=== PATIENT | female | born 1995 | race African-American/Black ===

== ENCOUNTER 2017-11-12 17:56 | Emergency (ER) | payer MEDICAID ==
--- NOTE | 2017-11-12 18:07 | ER Document Report ---
ED Medical Screen (RME) - General Stated Complaint: VAGINAL BLEEDING Notes: 22-year-old female presents via EMS for evaluation for back pain, vaginal bleeding and . Patient states that she was seen 1 week ago at [facility] where she received a speculum exam and a test and was told that she was . Over the last couple of days has been having pain in her back. Pain became more severe and vaginal bleeding became more pronounced today. Passing large clots. Could not find a ride to the hospital so had to call EMS. Patient interiors at this time. Denies any other major symptoms. No prior miscarriage. One previous . Denies any major medical problems. I have greeted and performed a rapid initial assessment of this patient. A comprehensive ED assessment and evaluation of the patient, analysis of test results and completion of the medical decision making process will be conducted by additional ED providers. Review of Systems - Review of Systems Notes: Review of systems positive for the following: Right-sided back pain, vaginal bleeding Physical Exam - Notes Notes: Uncomfortable appearing but tearful - General General appearance: Appears well, Alert, Anxious - Respiratory Respiratory status: No respiratory distress Chest status: Nontender Breath sounds: Normal Chest palpation: Normal - Cardiovascular Rhythm: Regular Heart sounds: Normal auscultation Murmur: No - Abdominal Inspection: Normal Distension: No distension Bowel sounds: Normal Tenderness: Nontender Organomegaly: No organomegaly - Back Back: Normal, Nontender
[2017-11-12] MEDS ORDERED: NORMAL SALINE 1000 ML 1,000 ML IV ONE (18:24)
[2017-11-12 18:30] LABS: ABSOLUTE EOSINOPHILS # (AUTO) 0.1 10^3/uL (0.0-0.6); ABSOLUTE LYMPHOCYTES (AUTO) 3.6 10^3/uL (0.5-4.7); ABSOLUTE MONOCYTES (AUTO) 0.4 10^3/uL (0.1-1.4); BASOPHILS % (AUTO) 0.5 % (0-2); EOSINOPHILS % (AUTO) 1.7 % (0-6); HEMATOCRIT 36.4 % (36.0-47.0); HEMOGLOBIN 12.4 g/dL (12.0-15.5); LYMPHOCYTES % (AUTO) 44.3 % (13-45); MEAN CORPUSCULAR HEMOGLOBIN 30.7 pg (27.0-33.4); MEAN CORPUSCULAR HGB CONC 34.2 g/dL (32.0-36.0); MEAN CORPUSCULAR VOLUME 90 fl (80-97); MONOCYTES % (AUTO) 5.2 % (3-13); PLATELET COUNT 277 10^3/uL (150-450); RED BLOOD COUNT 4.05 10^6/uL (3.72-5.28); RED CELL DISTRIBUTION WIDTH 13.4 % (11.5-14.0); SEGMENTED NEUTROPHILS % (AUTO) 48.3 % (42-78); TOTAL CELLS COUNTED % (AUTO) 100 %; WHITE BLOOD COUNT 8.2 10^3/uL (4.0-10.5)
[2017-11-12 18:53] LABS: ALANINE AMINOTRANSFERASE 15 U/L (9-52); ALKALINE PHOSPHATASE 41 U/L (38-126); ANION GAP 8 (5-19); ASPARTATE AMINO TRANSFERASE 15 U/L (14-36); BILIRUBIN,DIRECT 0.3 mg/dL (0.0-0.4); BILIRUBIN,TOTAL 0.4 mg/dL (0.2-1.3); BLOOD UREA NITROGEN 9 mg/dL (7-20); CALCIUM 9.7 mg/dL (8.4-10.2); CARBON DIOXIDE 26 mmol/L (22-30); CHLORIDE 104 mmol/L (98-107); GLUCOSE 70 mg/dL (75-110); POTASSIUM 4.2 mmol/L (3.6-5.0); SODIUM 137.9 mmol/L (137-145); TOTAL PROTEIN 7.1 g/dL (6.3-8.2)
--- NOTE | 2017-11-12 19:39 | ER Document Report ---
ED General - General Chief Complaint: Vaginal Bleeding Stated Complaint: VAGINAL BLEEDING Time Seen by Provider: 11/12/17 18:20 TRAVEL OUTSIDE OF THE [place] IN LAST 30 DAYS: No - HPI Patient complains to provider of: Vaginal bleeding Notes: Pt. is a 22 y/o female presenting to the ED c/o vaginla bleeding. Pt. stated that on Wed she was to another ED where she was told that "everything was ok." She stated staff at that time told her she was not having a miscarriage. She stated that she has continued with bright red vaginal bleeding for the past two days, today passing large clots with some back pain. Pt. stated that currently she is pain free. She denies nausea, vomiting, fever, dysuria, abdominal pain, trauma to her abdomen. LMP 08/27/2017. Pt. denies smoking, etoh use or illicit drug use. Medications: none Allergies: non Surgeries: - Related Data Allergies/Adverse Reactions: No Known Allergies Allergy (Unverified 11/12/17 19:37) Past Medical History - General Information source: Patient Last Menstrual Period: August 27, 2017 - Social History Smoking Status: Never Smoker Frequency of alcohol use: None Drug Abuse: Marijuana Lives with: Family Family History: Reviewed & Not Pertinent Patient has suicidal ideation: No Patient has homicidal ideation: No Renal/ Medical History: Denies: Hx Peritoneal Dialysis Review of Systems - Review of Systems Constitutional: See HPI EENT: No symptoms reported Cardiovascular: No symptoms reported Respiratory: See HPI Gastrointestinal: See HPI Genitourinary: See HPI Female Genitourinary: See HPI Musculoskeletal: See HPI Skin: No symptoms reported Hematologic/Lymphatic: No symptoms reported Neurological/Psychological: No symptoms reported Physical Exam - Vital signs Vitals: BP 147/126 H 11/12/17 18:00 - Notes Notes: GENERAL: Alert, interacts well. No acute distress. HEAD: Normocephalic, atraumatic. EYES: Pupils equal, round, and reactive to light. Extraocular movements intact. ENT: Oral mucosa moist, tongue midline. NECK: Full range of motion. Supple. Trachea midline. LUNGS: Clear to auscultation bilaterally, no wheezes, rales, or rhonchi. No respiratory distress. HEART: Regular rate and rhythm. No murmur ABDOMEN: Soft, non-tender. Non-distended. Bowel sounds present in all 4 quadrants. EXTREMITIES: Moves all 4 extremities spontaneously. No edema, normal radial and dorsalis pedis pulses bilaterally. No cyanosis. BACK: no cervical, thoracic, lumbar midline tenderness. No saddle anesthesia, normal distal neurovascular exam. NEUROLOGICAL: Alert and oriented x3. Normal speech. . PSYCH: Normal affect, normal mood. SKIN: Warm, dry, normal turgor. No rashes or lesions noted. Course - Re-evaluation Re-evalutation: Dr. Alfaro told NYDIA Morrow that the tissue passed was infact the fetus. POC sent to lab. Discussed with patient need for pelvic exam. Patient agrees. Pelvic revealed no tissue in os. Scant amount of fluid in cul-de-sac. Discussed with patient ultrasound results and need for follow-up with [facility] in 24-48 hours for repeat hCG. Return precautions given. Patient states she understands. - Vital Signs Vital signs: Temp Pulse Resp BP Pulse Ox 98.6 F 88 18 121/74 100 11/12/17 22:16 11/12/17 22:16 11/12/17 22:16 11/12/17 22:16 11/12/17 22:16 - Laboratory Result Diagrams: 11/12/17 18:10 11/12/17 18:10 Laboratory results interpreted by me: 11/12/17 11/12/17 18:10 18:30 Glucose 70 L Beta HCG, Quant 2075.60 H Urine Protein 100 H Urine Blood LARGE H Urine Ascorbic Acid 20 H Discharge - Discharge Clinical Impression: Vaginal bleeding, Miscarriage Condition: Stable Disposition: HOME, SELF-CARE Additional Instructions: I am sorry to tell you that you have been seen today in the Emergency Department for a miscarriage. According to your ultrasound there is no living in your uterus. You may have vaginal bleeding over the next few days with some abdominal cramping or lower back pain. You MUST follow up with your OBGYN as we discussed for repeat blood work in the next 24-48 hours. Return to the ED should you feel lightheaded or dizzy, pass out, have chest pains or shortness of breath, or for any other concerning symptoms. Take pain medications as prescribed for pain.
--- NOTE | 2017-11-12 19:52 | RADIOLOGY REPORT (SQ) ---
EXAM DESCRIPTION: U/S OB TRANSVAG W/DOPPLER COMPLETED DATE/TIME: 11/12/2017 7:28 pm REASON FOR STUDY: vag bleeding back pain COMPARISON: None. TECHNIQUE: Dynamic and static grayscale images acquired of the pelvis via transvaginal approach and recorded on PACS. Additional selected color Doppler and spectral images recorded. LIMITATIONS: None. FINDINGS: UTERUS: Contour normal. No mass. ENDOMETRIAL STRIPE: No focal or generalized thickening. No masses. CERVIX: No nabothian cysts. RIGHT OVARY AND DOPPLER: Normal size. No worrisome masses. 10 mm complex cyst. Normal arterial vasc ular flow without evidence for torsion. LEFT OVARY AND DOPPLER: Normal size. No worrisome masses. Normal arterial vascular flow without evide nce for torsion. FREE FLUID: Small mild cul-de-sac free fluid. OTHER: No other significant finding. MEASUREMENTS: UTERUS: 8.2 x 6.2 x 5.5 cm ENDOMETRIAL STRIPE: 11 mm RIGHT OVARY: 2.8 x 2.4 x 2.3 cm LEFT OVARY: 2.7 x 1.7 x 1.4 cm IMPRESSION: No IUP identified. TECHNICAL DOCUMENTATION: JOB ID: [id number] [email or web address]- All Rights Reserved Rev-07/09 Reading location - IP/workstation name: [email or web address]
[2017-11-12 20:12] LABS: APPEARANCE,URINE CLOUDY; BILIRUBIN,URINE NEGATIVE (NEGATIVE); GLUCOSE, URINE NEGATIVE (NEGATIVE); KETONES,URINE NEGATIVE (NEGATIVE); LEUKOCYTE ESTERASE,URINE NEGATIVE (NEGATIVE); NITRITE,URINE NEGATIVE (NEGATIVE); PROTEIN,URINE 100 mg/dL (NEGATIVE); URINE SPECIFIC GRAVITY 1.018; UROBILINOGEN,URINE NEGATIVE mg/dL (<2.0)
[2017-11-12 20:13] LABS: COLOR,URINE PINK
[2017-11-12] MEDS ORDERED: HYDROCODONE/ACETAMINOPHEN 5-325 MG (6 TAB/ER DISP) PO PRN (22:09)
[2017-11-12 22:18] VITALS: BP 121/74
== END 2017-11-12 22:18 | disposition home or self-care (01) ==
LOC: ER 17:56
DX: O03.9 Complete or unspecified spontaneous abortion without complication (principal)
CPT/HCPCS: 36415; 76817; 80053; 81001; 84702; 85025; 86900; 86901; 88305; 93976; 96360; 96361; 99284

== ENCOUNTER 2018-05-29 10:17 | Emergency (ER) | payer MEDICAID ==
[2018-05-29 10:39] LABS: ABSOLUTE LYMPHOCYTES (AUTO) 2.2 10^3/uL (0.5-4.7); ABSOLUTE MONOCYTES (AUTO) 0.3 10^3/uL (0.1-1.4); ABSOLUTE NEUT (AUTO) 2.6 10^3/uL (1.7-8.2); BASOPHILS % (AUTO) 0.7 % (0-2); EOSINOPHILS % (AUTO) 0.6 % (0-6); HEMATOCRIT 37.1 % (36.0-47.0); HEMOGLOBIN 12.8 g/dL (12.0-15.5); MEAN CORPUSCULAR HGB CONC 34.4 g/dL (32.0-36.0); MEAN CORPUSCULAR VOLUME 90 fl (80-97); MONOCYTES % (AUTO) 6.1 % (3-13); PLATELET COUNT 250 10^3/uL (150-450); RED BLOOD COUNT 4.11 10^6/uL (3.72-5.28); RED CELL DISTRIBUTION WIDTH 13.4 % (11.5-14.0); SEGMENTED NEUTROPHILS % (AUTO) 49.6 % (42-78); TOTAL CELLS COUNTED % (AUTO) 100 %; WHITE BLOOD COUNT 5.2 10^3/uL (4.0-10.5)
[2018-05-29] MEDS ORDERED: ONDANSETRON HCL INJ/PF 4 MG/2 ML SDV IV ONE (10:54)
[2018-05-29] MEDS ORDERED: KETOROLAC TROMETHAMINE INJ/PF 30 MG/1 ML SDV IV ONE (10:55)
[2018-05-29] MEDS ORDERED: MORPHINE SULFATE 10 MG/ML INJ IV ONE ×2 (10:55→11:26)
[2018-05-29] MEDS ORDERED: NORMAL SALINE 500 ML IV ONE (11:01)
--- NOTE | 2018-05-29 11:16 | ER Document Report ---
ED GI/ - General Chief Complaint: Abdominal Pain Stated Complaint: ABDOMINAL PAIN Time Seen by Provider: 05/29/18 10:38 Notes: Patient is complaining of severe left lower quadrant abdomen/pelvic pain which began this morning while she was getting ready to go to work. She was getting dressed when she suddenly had severe "cramping" in the LLQ. She has had a little bit of nausea but not vomiting. No diarrhea. Last bowel movement was about 5 days ago. She says that is not unusual for her to go that long between bowel movements and never has pain from constipation as severe as her current pain. Does not feel constipated. No fever. No UTI symptoms. Patient has been 3 times and has 1 child and has had 2 miscarriages. Patient's last menstrual cycle was May 02. She is on no control. She says that period was not normal for her. It lasted 5 days, while her periods are usually 7 days. In addition, it was "light pink" and not usual appearing blood. Patient says that she had a miscarriage this March,. Patient was seen here in October,, for vaginal bleeding and had a positive test. She says that she had a miscarriage after that ER visit. History of . TRAVEL OUTSIDE OF THE [place] IN LAST 30 DAYS: No - Related Data Allergies/Adverse Reactions: No Known Allergies Allergy (Unverified 11/12/17 19:37) Past Medical History - Social History Smoking Status: Unknown if Ever Smoked Family History: Reviewed & Not Pertinent Past Surgical History: Reports: Hx Section Review of Systems - Review of Systems Notes: REVIEW OF SYSTEMS: CONSTITUTIONAL : Denies fever. EENT: Denies eye, ear, nose or mouth or throat pain or other symptoms. CARDIOVASCULAR: Denies chest pain. RESPIRATORY: Denies cough, chest congestion, or shortness of breath. GASTROINTESTINAL: See HPI. Patient says she has not had a bowel movement for 5 days. She says this is not unusual for her. She is never had pain like current pain from constipation. GENITOURINARY: Denies difficulty or painful urinating, urinary frequency, blood in urine. No history of kidney stones. MUSCULOSKELETAL: Denies back or neck pain. Denies joint pain or swelling. SKIN: Denies rash or skin lesions. NEUROLOGICAL: Denies LOC or altered mental status. Denies headache. Denies sensory loss or motor deficits. ALL OTHER SYSTEMS REVIEWED AND NEGATIVE. Physical Exam - Vital signs Vitals: Temp Pulse Resp BP Pulse Ox 97.9 F 67 20 90/62 L 96 05/29/18 10:24 05/29/18 10:24 05/29/18 10:24 05/29/18 10:24 05/29/18 10:24 Interpretation: Hypotensive - 90/62 Notes: PHYSICAL EXAMINATION: GENERAL: Patient appears to be in severe pain. Is barely able to walk because of the pain. Walks hunched over vent at the waist. Unable to lay flat on the stretcher on her back.. HEAD: Atraumatic, normocephalic. EYES: Pupils equal round and reactive to light, extraocular movements intact. ENT: oropharynx clear without exudates. Moist mucous membranes. NECK: Normal range of motion, supple. LUNGS: Breath sounds clear and equal bilaterally. HEART: Regular rate and rhythm without murmurs. ABDOMEN: Diffusely tender throughout the entire lower abdomen with guarding. No rebound present. No masses felt Pelvic exam: No blood present in the vagina. Cervical loss is closed. No significant discharge. Manual exam reveals diffuse tenderness in both lower pelvic regions., More so on the right than the left at this time. Ms. . BACK: No tenderness throughout entire back. EXTREMITIES: Normal range of motion without pain. NEUROLOGICAL: Normal speech, normal gait. Normal sensory, motor, and reflex exams. Awake, alert, and oriented x3. Cranial nerves normal. SKIN: Warm, dry, no rashes. Course - Re-evaluation Re-evalutation: 05/29/18 12:51 Patient says her pain is much better at this time after having had Toradol, morphine 4 mg, repeat morphine 4 mg all IV. Ultrasound shows a ruptured left hemorrhagic ovarian cyst. Spoke with [employer] [employer] cardiology consultants, Dr. Newell, and she will see patient in the emergency department for admission. Patient has not had anything to eat or drink today. - Vital Signs Vital signs: Temp Pulse Resp BP Pulse Ox 97.8 F 91 16 127/46 H 97 05/29/18 16:58 05/29/18 16:58 05/29/18 16:58 05/29/18 16:58 05/29/18 16:58 - Laboratory Result Diagrams: 05/29/18 10:25 05/29/18 12:38 Laboratory results interpreted by me: 05/29/18 05/29/18 11:06 12:38 Chloride 114 H Carbon Dioxide 19 L Total Protein 6.1 L Albumin 3.4 L Urine Ketones TRACE H Discharge - Discharge Clinical Impression: Ruptured ovarian cyst Condition: Stable Disposition: ADMITTED INPATIENT Admitting Provider: [facility]
[2018-05-29] MEDS: MORPHINE SULFATE 10 MG/ML INJ ONE ×2 (11:23→11:44)
[2018-05-29 11:35] LABS: APPEARANCE,URINE CLEAR; BILIRUBIN,URINE NEGATIVE (NEGATIVE); COLOR,URINE YELLOW; GLUCOSE, URINE NEGATIVE (NEGATIVE); KETONES,URINE TRACE mg/dL (NEGATIVE); LEUKOCYTE ESTERASE,URINE NEGATIVE (NEGATIVE); NITRITE,URINE NEGATIVE (NEGATIVE); PROTEIN,URINE NEGATIVE (NEGATIVE); UROBILINOGEN,URINE NEGATIVE mg/dL (<2.0)
[2018-05-29 11:36] LABS: T.VAGINALIS (WET MOUNT) NO TRICHOMONAS SEEN; WBCS (WET MOUNT) RARE WBCS SEEN; YEAST (WET MOUNT) NO YEAST SEEN
--- NOTE | 2018-05-29 12:15 | RADIOLOGY REPORT (SQ) ---
EXAM DESCRIPTION: U/S NON OB PEL TV W/DOPPLER COMPLETED DATE/TIME: 05/29/2018 11:45 am REASON FOR STUDY: Sudden, severe LLQ pain COMPARISON: None. TECHNIQUE: Dynamic and static grayscale images acquired of the pelvis via transvaginal approach and recorded on PACS. Additional selected color Doppler and spectral images recorded. LIMITATIONS: None. FINDINGS: UTERUS: Contour normal. No mass. ENDOMETRIAL STRIPE: No focal or generalized thickening. No masses. CERVIX: No nabothian cysts. RIGHT OVARY AND DOPPLER: Ovary not visualized. LEFT OVARY AND DOPPLER: 2.8 cm complex hypoechoic lesion with adjacent free fluid. Normal flow on du plex Doppler. FREE FLUID: Moderate. OTHER: No other significant finding. IMPRESSION: Hemorrhagic cyst left ovary. TECHNICAL DOCUMENTATION: JOB ID: [id number] [employer]- All Rights Reserved Rev-07/09 Reading location - IP/workstation name: [email or web address]
[2018-05-29 13:06] LABS: CHLAM PCR NOT DETECTED (NOT DETECT); GON PCR NOT DETECTED (NOT DETECT)
[2018-05-29 13:20] LABS: ALANINE AMINOTRANSFERASE 16 U/L (9-52); ALBUMIN 3.4 g/dL (3.5-5.0); ALKALINE PHOSPHATASE 39 U/L (38-126); ASPARTATE AMINO TRANSFERASE 23 U/L (14-36); BILIRUBIN,DIRECT 0.2 mg/dL (0.0-0.4); BILIRUBIN,TOTAL 0.7 mg/dL (0.2-1.3); BLOOD UREA NITROGEN 9 mg/dL (7-20); CALCIUM 8.6 mg/dL (8.4-10.2); CHLORIDE 114 mmol/L (98-107); GLUCOSE 80 mg/dL (75-110); LIPASE 90.2 U/L (23-300); POTASSIUM 4.1 mmol/L (3.6-5.0); TOTAL PROTEIN 6.1 g/dL (6.3-8.2)
[2018-05-29 13:25] LABS: ANION GAP 6 (5-19); CARBON DIOXIDE 19 mmol/L (22-30); SODIUM 138.5 mmol/L (137-145)
[2018-05-29] MEDS ORDERED: BUPIVACAINE HCL 0.25 % INJ/PF (2.5 MG/1 ML) 30 ML VIAL ONE (13:27)
[2018-05-29] MEDS ORDERED: METHYLENE BLUE 50 MG/10 ML AMPULE ONE (13:27)
--- NOTE | 2018-05-29 13:33 | PDOC H&P ---
History of Present Illness Admission Date/PCP: MARY SILVA MD Patient complains of: Abdominal pain History of Present Illness: ERICK OVERTON is a 22 year old , presented [facility] complaining of abdominal pain which started at approximately 8:00 this morning. She stated that she was getting ready for work and had a stabbing pain, which was une xpected. Patient denies fever/chills or nausea/vomiting. Patient states that her last menstrual period was in April, which was a little on. She only had spotting onset of right red bleeding. Past Medical History LMP: April 2018 Menses: Regular Gynecological Infection: No 1 Baby 1 Male Delivery: : Low Cervical, Transverse Past Surgical History Past Surgical History: [place] teeth extraction Past Surgical History: Reports: Section Social History Lives with: Spouse/Significant other Smoking Status: Never Smoker Frequency of Alcohol Use: Rare Hx Recreational Drug Use: No Hx Prescription Drug Abuse: No Family History Family History: Reviewed & Not Pertinent Parental Family History Reviewed: Yes - Noncontributory Children Family History Reviewed: NA Sibling(s) Family History Reviewed.: NA Medication/Allergy Allergies/Adverse Reactions: No Known Allergies Allergy (Unverified 11/12/17 19:37) Physical Exam - Physical Exam Vital Signs: Temp Pulse Resp BP Pulse Ox 98.3 F 88 16 118/62 96 05/29/18 12:41 05/29/18 12:41 05/29/18 12:41 05/29/18 12:41 05/29/18 10:24 Intake & Output 05/28/18 05/29/18 05/30/18 06:59 06:59 06:59 Weight 63.503 kg General appearance: PRESENT: severe distress Cardiovascular exam: PRESENT: RRR, tachycardia GI/Abdominal exam: PRESENT: guarding, normal bowel sounds - Rigid; rebound tenderness Extremities exam: ABSENT: calf tenderness, clubbing, full ROM, joint swelling, pedal edema, tenderness, +1 edema, +2 edema, other Result Laboratory Results: 05/29/18 10:25 05/29/18 05/29/18 05/29/18 10:25 10:25 10:25 WBC 5.2 RBC 4.11 Hgb 12.8 Hct 37.1 MCV 90 MCH 31.0 MCHC 34.4 RDW 13.4 Plt Count 250 Seg Neutrophils % 49.6 Lymphocytes % 43.0 Monocytes % 6.1 Eosinophils % 0.6 Basophils % 0.7 Absolute Neutrophils 2.6 Absolute Lymphocytes 2.2 Absolute Monocytes 0.3 Absolute Eosinophils 0.0 Absolute Basophils 0.0 Sodium Cancelled Potassium Cancelled Chloride Cancelled Carbon Dioxide Cancelled Anion Gap Cancelled BUN Cancelled Creatinine Cancelled Est GFR ( Amer) Cancelled Est GFR (Non-Af Amer) Cancelled Glucose Cancelled Calcium Cancelled Total Bilirubin Cancelled AST Cancelled ALT Cancelled Alkaline Phosphatase Cancelled Total Protein Cancelled Albumin Cancelled Lipase Cancelled Serum HCG, Qual Cancelled Urine Color Urine Appearance Urine pH Ur Specific [place] Urine Protein Urine Glucose (UA) Urine Ketones Urine Blood Urine Nitrite Ur Leukocyte Esterase Urine WBC (Auto) Urine RBC (Auto) Blood Type 05/29/18 05/29/18 05/29/18 11:06 11:06 11:06 WBC RBC Hgb Hct MCV MCH MCHC RDW Plt Count Seg Neutrophils % Lymphocytes % Monocytes % Eosinophils % Basophils % Absolute Neutrophils Absolute Lymphocytes Absolute Monocytes Absolute Eosinophils Absolute Basophils Sodium Cancelled Potassium Cancelled Chloride Cancelled Carbon Dioxide Cancelled Anion Gap Cancelled BUN Cancelled Creatinine Cancelled Est GFR ( Amer) Cancelled Est GFR (Non-Af Amer) Cancelled Glucose Cancelled Calcium Cancelled Total Bilirubin Cancelled AST Cancelled ALT Cancelled Alkaline Phosphatase Cancelled Total Protein Cancelled Albumin Cancelled Lipase Cancelled Serum HCG, Qual NEGATIVE Urine Color YELLOW Urine Appearance CLEAR Urine pH 6.0 Ur Specific [place] 1.020 Urine Protein NEGATIVE Urine Glucose (UA) NEGATIVE Urine Ketones TRACE H Urine Blood NEGATIVE Urine Nitrite NEGATIVE Ur Leukocyte Esterase NEGATIVE Urine WBC (Auto) 0 Urine RBC (Auto) 2 Blood Type 05/29/18 11:26 WBC RBC Hgb Hct MCV MCH MCHC RDW Plt Count Seg Neutrophils % Lymphocytes % Monocytes % Eosinophils % Basophils % Absolute Neutrophils Absolute Lymphocytes Absolute Monocytes Absolute Eosinophils Absolute Basophils Sodium Potassium Chloride Carbon Dioxide Anion Gap BUN Creatinine Est GFR ( Amer) Est GFR (Non-Af Amer) Glucose Calcium Total Bilirubin AST ALT Alkaline Phosphatase Total Protein Albumin Lipase Serum HCG, Qual Urine Color Urine Appearance Urine pH Ur Specific [place] Urine Protein Urine Glucose (UA) Urine Ketones Urine Blood Urine Nitrite Ur Leukocyte Esterase Urine WBC (Auto) Urine RBC (Auto) Blood Type O POSITIVE Impressions: Transvaginal US 05/29/18 11:08 IMPRESSION: Hemorrhagic cyst left ovary. Assessment & Plan - Diagnosis (1) Hemorrhagic cyst of left ovary Is this a current diagnosis for this admission?: Yes (2) Ruptured ovarian cyst Is this a current diagnosis for this admission?: Yes - Time Critical Time spent with patient: 35 or more minutes - Plan Summary Plan Summary: 1. Consent for diagnostic laparoscopy 2. Anticipate discharge home later 3. Follow-up in the office in 2 weeks for postop exam
[2018-05-29] MEDS ORDERED: SUCCINYLCHOLINE CHLORIDE INJ 200 MG/10 ML VIAL ONE (13:42)
[2018-05-29] MEDS ORDERED: ROCURONIUM BROMIDE INJ 50 MG/5 ML VIAL IV ONE (13:42)
[2018-05-29] MEDS ORDERED: NEOSTIGMINE METHYLSULFATE 10 MG/10 ML VIAL ONE (13:42)
[2018-05-29] MEDS ORDERED: GLYCOPYRROLATE 1 MG/5 ML SYRINGE ONE (13:42)
[2018-05-29] MEDS ORDERED: ONDANSETRON HCL INJ/PF 4 MG/2 ML SDV ONE (13:42)
[2018-05-29] MEDS ORDERED: DEXAMETHASONE SOD PHOSPHATE INJ 4 MG/1 ML VIAL ONE (13:42)
[2018-05-29] MEDS ORDERED: FENTANYL CITRATE INJ/PF 100 MCG/2 ML AMPUL ONE (13:50)
[2018-05-29] MEDS ORDERED: PROPOFOL INJ 200 MG/20 ML VIAL IV ONE (13:51)
[2018-05-29] MEDS ORDERED: HYDROMORPHONE HCL INJ/PF 2 MG/ML AMPULE ONE (13:51)
[2018-05-29] MEDS ORDERED: ACETAMINOPHEN 1,000 MG/100 ML RTUPB IV ONE (13:51)
[2018-05-29] MEDS ORDERED: MIDAZOLAM 2 MG/2 ML INJ ONE (13:51)
[2018-05-29] MEDS ORDERED: DIPHENHYDRAMINE HCL 50 MG/ML VIAL IV PRN (14:41)
[2018-05-29] MEDS ORDERED: PROMETHAZINE HCL INJ 25 MG/1 ML VIAL IV PRN ×2 (14:41→17:00)
[2018-05-29] MEDS ORDERED: MEPERIDINE HCL/PF INJ 25 MG/1 ML DISP.SYRIN IV PRN (14:41)
[2018-05-29] MEDS ORDERED: MORPHINE SULFATE 10 MG/ML INJ IV PRN (14:41)
[2018-05-29] MEDS ORDERED: FENTANYL CITRATE INJ/PF 100 MCG/2 ML AMPUL IV PRN ×3 (14:41)
--- NOTE | 2018-05-29 16:18 | Operative Report ---
Operative Report DATE OF SURGERY: 05/29/18 PREOPERATIVE DIAGNOSIS: 1. Left ruptured hemorrhagic ovarian cyst. 2. Hemope ritoneum POSTOPERATIVE DIAGNOSIS: 1. Right ruptured hemorrhagic ovarian cyst. 2. Hemoperitoneum. 3. Left-sided abdominal adhesions OPERATION: Diagnostic laparoscopy with cauterization of right ruptured hemorrhagic ovarian cyst SURGEON: JASS BERG ANESTHESIA: GA TISSUE REMOVED OR ALTERED: None COMPLICATIONS: None ESTIMATED BLOOD LOSS: 100 ml INTRAOPERATIVE FINDINGS: Right ruptured hemorrhagic cyst; hemoperitoneum; left sided omentum adhesed to the abdominal wall PROCEDURE: The patient was taken to the operating room where general anesthesia was obtaine d without difficulty. She was then placed in dorsal supine lithotomy position and prepped and draped in the normal sterile fashion. [place] speculum was then placed in the patient's vagina and the anterior lip of the cervix grasped with a single-tooth tenaculum. An acorn uterine manipulator was then advanced into the uterus to provide a means of manipulation of the uterus. The speculum and te naculum were then removed from the patient's cervix and vagina. Attention was then turned to the patient's abdomen where a 5 mm skin incision was then made in the umbilicus. The Optiview trocar with 0 laparoscope was then advanced without difficulty under direct visualization with the Optiview trocar. This was performed while tenting the abdominal wall. Intraperitoneal placement was confirmed by the direct visualization. Pneumoperitoneum was then obtained with approximately 4 L carbon dioxide gas. Survey of the patient's abdomen and pelvis revealed a right ruptured hemorrhagic cyst. There was approximately 100 mL's of blood in the posterior cul-de-sac. Two 5 mm lateral ports were then placed under direct visualization. On the left side, omentum was adhesed to the abdominal wall. It was obstructing the trocar and access to the ovary. The LigaSure was then used to cauterize and cut down the adhesions. Hemostasis was noted. The right fallopian tube was then identified and followed out to the fimbriated end. It was noted that there was an opening in the right ovary and active bleeding was noted. The ovary was then grasped and a L hook was used to cauterize the edges. The cautery was also used inside of the capsule of the cyst. The bleeding was then minimal. The suction metal turner was then introduced into the opening of the ovary and was used to irrigate inside of the ovary. Mild bleeding was noted. FloSeal was then placed inside of the ovary and the area was hemostatic. Pictures of the abdomen were taken before and after. The left ovary appeared normal. The abdomen was then copiously irrigated with warm normal saline. The CO2 gas was then turned off and allowed to escape from the patient's abdomen. All trocars were then removed. The skin at all trocar sites were closed with 4-0 Vicryl in a subcuticular fashion with overlying Dermabond. No antibiotics were indicated for this procedure. After completion of skin closure of the trocar sites attention was then turned to the vagina where the acorn uterine manipulator was removed and the bivalve speculum was replaced. Monsel's solution was applied to the tenaculum sites for hemostasis and the speculum was removed. Sponge, lap, needle and instrument counts were correct 2. The patient tolerated the procedure well and was taken to the recovery area awake and in stable condition.
[2018-05-29] MEDS ORDERED: KETOROLAC TROMETHAMINE INJ/PF 30 MG/1 ML SDV ONE (16:38)
[2018-05-29] MEDS ORDERED: OXYCODONE-ACETAMINOPHEN 5-325 MG TABLET ONE (16:56)
[2018-05-29] MEDS ORDERED: OXYCODONE-ACETAMINOPHEN 5-325 MG TABLET PO PRN (16:58)
[2018-05-29] MEDS ORDERED: KETOROLAC TROMETHAMINE INJ/PF 30 MG/1 ML SDV INJ PRN (16:58)
[2018-05-29] MEDS ORDERED: ONDANSETRON HCL INJ/PF 4 MG/2 ML SDV IV PRN (16:59)
[2018-05-29 19:32] VITALS: BP 127/46
== END 2018-05-29 19:00 | disposition home or self-care (01) ==
LOC: ER 10:17 → UNDOADMIN 13:54 → EH 13:54 → UNDODISIN 19:00 → ER 19:00
DX: N83.201 Unspecified ovarian cyst, right side (principal); K66.1 Hemoperitoneum; R10.32 Left lower quadrant pain; R10.2 Pelvic and perineal pain; K66.0 Peritoneal adhesions (postprocedural) (postinfection); Z98.891 History of uterine scar from previous surgery
CPT/HCPCS: 99285; 96374; 96375; 86900; 86901; 36415; 87210; 86850; 84702; 83690; 84703; 85025; 80053; 81001; 87491; 87591; 76830; 93976; 58679; J2250; J3490 ×2; J1100; J3010; J1885; J2270; J1170; J0330; J2405; S0020; J7040; J2704; J0131; 840; Q9968